=== PATIENT | female | born 1995 | race Caucasian/White ===

== ENCOUNTER 2018-02-24 17:44 | Emergency (ER) | payer OTHER ==
[2018-02-24 17:52] VITALS: BP 115/67
--- NOTE | 2018-02-24 18:21 | ED Physician Documentation ---
PD HPI WOUND RECHECK - Stated complaint Stated Complaint: INCISION CHECK - Chief complaint Chief Complaint: General - Histroy obtained from History obtained from: Patient - History of Present Illness Location: Abdomen, Other (The patient is status post a 3 weeks ago, there is a small area of dehiscence and she has been using butterfly strips. The patient this friend thought that the wound opened up all the way and wanted it rechecked. 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 - Present Medications Home Medications: Ambulatory Orders Medication Instructions Recorded Confirmed Docusate Sodium 250Mg Capsule 250 mg PO DAILY 02/24/18 02/24/18 [Colace 250Mg Capsule] Ferrous Gluconate [Iron] 240 mg PO DAILY PM 02/24/18 02/24/18 Pnv No.95/Ferrous Fum/Folic AC 1 each PO DAILY 02/24/18 02/24/18 [ Caplet] - Allergies Allergies/Adverse Reactions: Allergies Allergy/AdvReac Type Severity Reaction Status Date / Time No Known Drug Allergies Allergy Verified 02/24/18 17:50 - Social History Does the pt smoke?: No Smoking Status: Never smoker Does the pt drink ETOH?: No - Immunizations Immunizations are current?: Yes PD ED PE NORMAL - General General: Alert and oriented X 3, No acute distress - HEENT HEENT: Atraumatic, PERRL, EOMI, Ears normal - Neuro Neuro: Alert and oriented X 3, Normal speech - Psych Psych: Normal mood PD ED PE EXPANDED - Derm SKin visual: 1 - laceration ( scar) 2 - laceration (There is a small area of dehiscence on the right corner of the wound, there is no active drainage and this appears to be healing via secondary intention. There is no other area of wound dehiscence at this time. There is no evidence to suggest underlying seroma, abscess or acute cellulitis.) Results - Vitals Vitals: Vital Signs - 24 hr 02/24/18 17:46 Temperature 36.4 C L Heart Rate 106 H Respiratory 18 Rate Blood Pressure 115/67 O2 Saturation 95 Oxygen O2 Source Room air PD MEDICAL DECISION MAKING - ED course ED course: Advise continuing using the butterfly strips, currently there is no signs of acute infection and the patient appears appropriate for discharge and reevaluation as outpatient. Departure - Departure Disposition: Home, Self Care Clinical Impression: Visit for wound check Condition: Good Comments: Please follow-up with your INTERMEDIATE MANAGER for recheck of your wound Please continue to do the butterfly strips Please return to the emergency department for worsening symptoms or any concerns Discharge Date/Time: 02/24/18 18:25
== END 2018-02-24 18:25 | disposition home or self-care (01) ==
LOC: ED 17:44
DX: O90.0 Disruption of cesarean delivery wound (principal)
CPT/HCPCS: 99281; 99282

== ENCOUNTER 2018-10-18 19:26 | Emergency (ER) | payer OTHER ==
--- NOTE | 2018-10-18 20:29 | ED Physician Documentation ---
PD HPI ABD PAIN - Stated complaint Stated Complaint: N/V CHILLS - Chief complaint Chief Complaint: Abd Pain - History obtained from History obtained from: Patient - History of Present Illness Timing - onset: Enter time (12:00), Today Timing - details: Abrupt onset Pain level now: 6 Quality: Pain Location: All over / everywhere (predominantly RLQ) Radiation: Other (no radiation) Improved by: Position Worsened by: Palpation Associated symptoms: Nausea. No: Fever (uncertain (does not having working thermometer at home)), Vomiting, Diarrhea, Dysuria Similar symptoms before: Has not had sx before Recently seen: Not recently seen - Additional information Additional information: c/o generalized body aches, chills since noon. She then developed nausea, vomiting 4:45 PM today, continues to have n/v. Review of Systems Constitutional: reports: Chills, Myalgias Cardiac: reports: Reviewed and negative Respiratory: reports: Reviewed and negative GI: reports: Abdominal Pain, Nausea. 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 - Present Medications Home Medications: Ambulatory Orders Medication Instructions Recorded Confirmed Docusate Sodium 250Mg Capsule 250 mg PO DAILY 02/24/18 02/24/18 [Colace 250Mg Capsule] Ferrous Gluconate [Iron] 240 mg PO DAILY PM 02/24/18 02/24/18 Pnv No.95/Ferrous Fum/Folic AC 1 each PO DAILY 02/24/18 02/24/18 [ Caplet] Diphenoxylate/Atropine [Lomotil] 1 each PO QID PRN #10 tablet 10/18/18 Ondansetron Odt [Zofran Odt] 4 mg TL Q6H PRN #10 tablet 10/18/18 - Allergies Allergies/Adverse Reactions: Allergies Allergy/AdvReac Type Severity Reaction Status Date / Time No Known Drug Allergies Allergy Verified 02/24/18 17:50 - Social History Does the pt smoke?: No Smoking Status: Never smoker Does the pt drink ETOH?: No Does the pt have substance abuse?: No - Immunizations Immunizations are current?: Yes - POLST Patient has POLST: No PD ED PE NORMAL - Vitals Vital signs reviewed: Yes - General General: Alert and oriented X 3, No acute distress, Well developed/nourished - HEENT HEENT: Other (dry/pasty mucous membranes) - Neck Neck: Supple, no meningeal sign - Cardiac Cardiac: No murmur - Respiratory Respiratory: No respiratory distress, Clear bilaterally - Abdomen Abdomen: Soft, Non distended - Derm Derm: Normal color, Warm and dry PD ED PE EXPANDED - Cardiac Cardiac: Regular Rate, Tachy - Abdomen Abdomen: Tender to palpation, RLQ - Back Back: CVA TTP left (mild) Results - Vitals Vitals: Vital Signs - 24 hr 10/18/18 10/18/18 10/18/18 19:32 20:15 20:53 Temperature 36.3 C L Heart Rate 110 H 81 Respiratory 18 17 17 Rate Blood Pressure 117/61 96/62 O2 Saturation 100 99 10/18/18 10/18/18 10/18/18 21:31 22:35 22:53 Temperature Heart Rate 87 Respiratory 16 16 16 Rate Blood Pressure 92/57 L O2 Saturation 98 Oxygen O2 Source Room air - Labs Labs: Laboratory Tests 10/18/18 10/18/18 10/18/18 20:30 20:30 20:30 WBC 11.7 H RBC 5.01 Hgb 14.5 Hct 44.7 MCV 89.2 MCH 28.9 MCHC 32.4 RDW 13.9 Plt Count 220 MPV 9.9 Neut # (Auto) 10.6 H Lymph # (Auto) 0.6 L [place] # (Auto) 0.5 Eos # (Auto) 0.0 Baso # (Auto) 0.0 Absolute Nucleated RBC 0.00 Nucleated RBC % 0.0 Sodium 138 Potassium 3.6 Chloride 103 Carbon Dioxide 23 Anion Gap 12.0 BUN 17 Creatinine 0.8 Estimated GFR (MDRD) 89 Glucose 120 H Calcium 8.7 Total Bilirubin 2.6 H AST 15 ALT 14 Alkaline Phosphatase 57 Total Protein 6.8 Albumin 4.0 Globulin 2.8 Albumin/Globulin Ratio 1.4 Lipase 30 HCG, Quant < 0.60 Urine Color Urine Clarity Urine pH Ur Specific Taylor Urine Protein Urine Glucose (UA) Urine Ketones Urine Occult Blood Urine Nitrite Urine Bilirubin Urine Urobilinogen Ur Leukocyte Esterase Ur Microscopic Review Urine Culture Comments 10/18/18 22:28 WBC RBC Hgb Hct MCV MCH MCHC RDW Plt Count MPV Neut # (Auto) Lymph # (Auto) [place] # (Auto) Eos # (Auto) Baso # (Auto) Absolute Nucleated RBC Nucleated RBC % Sodium Potassium Chloride Carbon Dioxide Anion Gap BUN Creatinine Estimated GFR (MDRD) Glucose Calcium Total Bilirubin AST ALT Alkaline Phosphatase Total Protein Albumin Globulin Albumin/Globulin Ratio Lipase HCG, Quant Urine Color YELLOW Urine Clarity CLEAR Urine pH 5.5 Ur Specific Taylor <=1.005 Urine Protein NEGATIVE Urine Glucose (UA) NEGATIVE Urine Ketones NEGATIVE Urine Occult Blood NEGATIVE Urine Nitrite NEGATIVE Urine Bilirubin NEGATIVE Urine Urobilinogen 0.2 (NORMAL) Ur Leukocyte Esterase NEGATIVE Ur Microscopic Review NOT INDICATED Urine Culture Comments NOT INDICATED - Rads (name of study) CT A/P Radiology: Prelim report reviewed, See rad report PD MEDICAL DECISION MAKING - ED course Complexity details: reviewed results, re-evaluated patient, considered differential, d/w patient Departure - Departure Disposition: 01 Home, Self Care Clinical Impression: Vomiting, Diarrhea Condition: Good Instructions: ED Diet Vomiting Diarrhea, ED Vomiting Diarrhea Nonspecific Ad Follow-Up: Keon Griffin MD [Primary Care Provider] - Prescriptions: Diphenoxylate/Atropine [Lomotil] 1 each PO QID PRN #10 tablet PRN Reason: Diarrhea Ondansetron Odt [Zofran Odt] 4 mg TL Q6H PRN #10 tablet PRN Reason: Nausea / Vomiting Forms: Activity restrictions Discharge Date/Time: 10/18/18 23:06
[2018-10-18] MEDS ORDERED: ONDANSETRON 4 MG/2 ML VIAL IVP STA (20:45)
[2018-10-18] MEDS ORDERED: SODIUM CHLORIDE 0.9% 1,000 ML IV STA (20:46)
[2018-10-18 20:53] LABS: BASOPHILS % (AUTO) 0.2 %; EOSINOPHILS % (AUTO) 0.3 %; HGB - HEMOGLOBIN 14.5 g/dL (12.0-16.0); LYMPHOCYTES # (AUTO) 0.6 10^3/uL (1.5-3.5); LYMPHOCYTES % (AUTO) 4.7 %; MEAN CORPUSCULAR HEMOGLOBIN 28.9 pg (27.0-31.0); MEAN CORPUSCULAR HGB CONC 32.4 g/dL (32.0-36.0); MEAN CORPUSCULAR VOLUME 89.2 fL (81.0-99.0); MEAN PLATELET VOLUME 9.9 fL (7.9-10.8); MONOCYTES # (AUTO) 0.5 10^3/uL (0.0-1.0); MONOCYTES % (AUTO) 4.2 %; NEUTROPHILS # (AUTO) 10.6 10^3/uL (1.5-6.6); NEUTROPHILS % (AUTO) 90.3 %; PLT - PLATELET COUNT 220 10^3/uL (130-450); RED BLOOD COUNT 5.01 10^6/uL (4.20-5.40); RED CELL DISTRIBUTION WIDTH 13.9 % (12.0-15.0); WHITE BLOOD COUNT 11.7 x10^3/uL (4.8-10.8)
[2018-10-18] MEDS ORDERED: IOVERSOL 320 100 ML VIAL IVP ONE ×2 (20:59→21:42)
[2018-10-18 21:21] LABS: ALBUMIN/GLOBULIN RATIO 1.4 (1.0-2.2); BILIRUBIN,TOTAL 2.6 mg/dL (0.2-1.0); CALCIUM 8.7 mg/dL (8.5-10.3); CREATININE 0.8 mg/dL (0.4-1.0); TOTAL PROTEIN 6.8 g/dL (6.7-8.2)
--- NOTE | 2018-10-18 22:19 | CT Report ---
Reason: RLQ abd. pain Procedure Date: 10/18/2018 Accession Number: [id number] / [id number] Procedure: CT - Abdomen/Pelvis W CPT Code: FULL RESULT: EXAM: CT ABDOMEN AND PELVIS WITH CONTRAST. EXAM DATE: 10/18/2018 09:44 PM. CLINICAL HISTORY: Right lower quadrant abdominal pain. COMPARISONS: None. TECHNIQUE: Routine helical CT imaging was performed through the abdomen and pelvis. IV contrast: 100 mL Optiray 320. Enteric contrast: No. Reconstructions: Coronal and sagittal. In accordance with CT protocol optimization, one or more of the following dose reduction techniques were utilized for this exam: automated exposure control, adjustment of mA and/or KV based on patient size, or use of iterative reconstructive technique. FINDINGS: ABDOMEN: Liver: No significant abnormality. Stomach/Distal Esophagus: No significant abnormality. Gallbladder: No significant abnormality. Bile Ducts: No significant abnormality. Pancreas: No significant abnormality. Spleen: No significant abnormality. Kidneys: No suspicious solid appearing lesion. No hydronephrosis. Adrenals: No significant abnormality. Bowel: No obstruction. Liquid stool noted within the colon, possibly related to a diarrheal event. Appendix: Normal. Lymph Nodes: No pathologically enlarged nodes. Vasculature: Normal caliber aorta. Fluid: No significant free fluid. Abdominal Wall: No significant abnormality. Other: No significant abnormality. PELVIS: Uterus and Ovaries: Physiologic appearance of the uterus and ovaries. There is a 1.8 cm collapsing cyst within the right ovary. Bladder: No significant abnormality. Lymph Nodes: No pathologically enlarged nodes. Fluid: No significant free fluid. Other: None. BONES: No suspicious bony lesions. LOWER CHEST: No significant consolidation or effusion. IMPRESSION: 1. Liquid stool within the colon, suggesting a diarrheal event. 2. No evidence of colitis. No bowel obstruction. Appendix is normal. 3. Physiologic appearance of the uterus and ovaries. RADIA
[2018-10-18 22:36] VITALS: BP 92/57
[2018-10-18 22:37] LABS: BILIRUBIN,URINE NEGATIVE (NEGATIVE); GLUCOSE, URINE (UA) NEGATIVE (NEGATIVE); KETONES,URINE (UA) NEGATIVE (NEGATIVE); LEUKOCYTE ESTERASE, URINE NEGATIVE (NEGATIVE); NITRITE,URINE NEGATIVE (NEGATIVE); OCCULT BLOOD,URINE NEGATIVE (NEGATIVE); PH,URINE 5.5 PH (5.0-7.5); PROTEIN,URINE NEGATIVE (NEGATIVE); UROBILINOGEN,URINE 0.2 (NORMAL) E.U./dL (NORMAL)
[2018-10-18 22:38] LABS: CLARITY,URINE CLEAR (CLEAR)
[2018-10-18] MEDS ORDERED: DIPHENOX/ATROPINE 2.5/0.025 MG TABLET PO STA (22:45)
[2018-10-18] MEDS ORDERED: ONDANSETRON ODT 4 MG Prepack 2 TL PRN (22:45)
== END 2018-10-18 23:06 | disposition home or self-care (01) ==
LOC: ED 19:26
DX: R11.2 Nausea with vomiting, unspecified (principal); R19.7 Diarrhea, unspecified; R10.31 Right lower quadrant pain
CPT/HCPCS: 36415; 74177; 80053; 81003; 83690; 84702; 85025; 96361; 96374; 99284; A9270; Q9967; 81001; 87086

== ENCOUNTER 2018-11-07 08:51 | Emergency (ER) | payer OTHER ==
[2018-11-07] MEDS ORDERED: CHERRY SYRUP 10 ML UDC PO ONE (09:07)
[2018-11-07] MEDS ORDERED: IPRATROPIUM/ALBUTEROL 3 ML NEB INH STA (09:07)
[2018-11-07] MEDS ORDERED: DEXAMETHASONE 10 MG/ML VIAL PO STA (09:07)
--- NOTE | 2018-11-07 09:10 | ED Physician Documentation ---
PD HPI URI - Stated complaint Stated Complaint: COUGH, CHEST PAIN - Chief complaint Chief Complaint: Resp - History obtained from History obtained from: Patient - History of Present Illness Timing - onset: How many days ago (3) Timing duration: Days (3) Timing details: Gradual onset, Still present Associated symptoms: Nasal congestion, Rhinorrhea, Dry cough, Chest pain, Dyspnea Contributing factors: Sick contact Improves by: Rest, Medication Similar symptoms before: Diagnosis (bronchitis) Recently seen: Not recently seen - Additional information Additional information: 23-year-old active [employer] [place] female has developed a cough and congestion shortness of breath and chest pain over the past 3 days. She is not producing any phlegm she feels like she needs to cough something up has not been able to get up. She has had something similar previously with bronchitis and required an inhaler. 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 : None HEENT: None Psych: Anxiety Musculoskeletal: None Derm: None - Past Surgical History 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 - Present Medications Home Medications: Ambulatory Orders Medication Instructions Recorded Confirmed Albuterol Sulf [Ventolin Hfa 1 - 2 puffs INH Q4HR PRN #1 inhaler 11/07/18 Inhaler] Azithromycin [Zithromax] 250 mg PO DAILY #6 tablet 11/07/18 Benzonatate [Tessalon Perle] 100 - 200 mg PO TID PRN #30 capsule 11/07/18 - Allergies Allergies/Adverse Reactions: Allergies Allergy/AdvReac Type Severity Reaction Status Date / Time No Known Drug Allergies Allergy Verified 11/07/18 09:00 - Social History Does the pt smoke?: No Smoking Status: Never smoker Does the pt drink ETOH?: No Does the pt have substance abuse?: No - Immunizations Immunizations are current?: Yes - POLST Patient has POLST: No PD ED PE NORMAL - Vitals Vital signs reviewed: Yes (normal ) - General General: Alert and oriented X 3, No acute distress, Well developed/nourished - HEENT HEENT: Atraumatic, PERRL, EOMI, Ears normal, Other (There is mid facial swelling and puffy eyes. ) - Neck Neck: Supple, no meningeal sign, No bony TTP - Cardiac Cardiac: RRR, No murmur - Respiratory Respiratory: No respiratory distress, Other (diminished breath sounds. ) - Abdomen Abdomen: Soft, Non tender - Back Back: No CVA TTP, No spinal TTP - Derm Derm: Normal color, Warm and dry, No rash - Extremities Extremities: No deformity, No edema - Neuro Neuro: Alert and oriented X 3, jet inspector 2-12 intact, No motor deficit, No sensory deficit, Normal speech Eye Opening: Spontaneous Motor: Obeys Commands Verbal: Oriented GCS Score: 15 - Psych Psych: Normal mood, Normal affect Results - Vitals Vitals: Vital Signs - 24 hr 11/07/18 11/07/18 08:59 09:16 Temperature 36.5 C Heart Rate 75 76 Respiratory 20 16 Rate Blood Pressure 110/62 O2 Saturation 99 Oxygen O2 Source Room air PD MEDICAL DECISION MAKING - ED course Complexity details: reviewed results, re-evaluated patient, considered differential, d/w patient ED course: 23 y/o female with a URI with chest tightness is given decadron and a duoneb. She has improvement with this. Departure - Departure Disposition: 01 Home, Self Care Clinical Impression: Asthmatic bronchitis Qualifiers: Asthma severity: mild Asthma persistence: intermittent Asthma complication type: with acute exacerbation Qualified Code(s): J45.21 - Mild intermittent asthma with (acute) exacerbation Condition: Stable Instructions: ED Bronchitis Asthmatic Follow-Up: Keon Griffin MD [Primary Care Provider] - Prescriptions: Albuterol Sulf [Ventolin Hfa Inhaler] 1 - 2 puffs INH Q4HR PRN #1 inhaler PRN Reason: Shortness Of Air/Wheezing Azithromycin [Zithromax] 250 mg PO DAILY #6 tablet Benzonatate [Tessalon Perle] 100 - 200 mg PO TID PRN #30 capsule PRN Reason: Cough Forms: Activity restrictions
[2018-11-07 10:28] VITALS: BP 116/74
== END 2018-11-07 10:28 | disposition home or self-care (01) ==
LOC: ED 08:51
DX: J45.21 Mild intermittent asthma with (acute) exacerbation (principal)
CPT/HCPCS: 94640; 99283; 99284; A9270

== ENCOUNTER 2019-01-05 10:30 | Emergency (ER) | payer OTHER ==
--- NOTE | 2019-01-05 10:55 | ED Physician Documentation ---
PD HPI FEMALE - Stated complaint Stated Complaint: FEMALE - Chief complaint Chief Complaint: Abd Pain - History obtained from History obtained from: Patient - History of Present Illness Timing - onset: How many days ago (20) Timing - duration: Days (She has had vaginal bleeding for about 3 weeks after a medical elective termination of . She is 6 weeks by ultrasound and had misoprostol through [facility]. She had expected cramping and vaginal bleeding over several days to week which then persisted longer than expected. The vaginal bleeding is continued and has actually increased in the last 2 or 3 days to being fully saturated pad or tampon every 2-3 hours. This morning she awoke and had vaginal bleeding overflow her pad which was a maxi pad and was running down her leg. She was feeling generally weak and lightheaded. She is having intermittent pelvic cramping. She was to follow-up with [facility] but her daughter became sick and she was unable to make the scheduled appointment and then had not been able to reschedule as yet.) Timing - details: Abrupt onset, Still present (worse the past 2-3 days), Waxing and waning Associated symptoms: Pelvic pain (intermittent), Vaginal bleeding. 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: No Does the pt have substance abuse?: No - Immunizations Immunizations are current?: Yes - POLST Patient has POLST: No PD ED PE NORMAL - Vitals Vital signs reviewed: Yes (tachycardic but good BP) - General General: Alert and oriented X 3, No acute distress, Well developed/nourished - Neck Neck: Supple, no meningeal sign, No adenopathy - Cardiac Cardiac: RRR, No murmur - Respiratory Respiratory: Clear bilaterally - Abdomen Abdomen: Normal bowel sounds, Soft, Non tender, Non distended, No organomegaly - Female Female : Deferred - Back Back: No CVA TTP - Derm Derm: Normal color, Warm and dry - Extremities Extremities: Normal ROM s pain - Neuro Neuro: Alert and oriented X 3, No motor deficit, Normal speech Results - Vitals Vitals: Vital Signs - 24 hr 01/05/19 01/05/19 01/05/19 10:37 10:59 11:11 Temperature 36.7 C Heart Rate 118 H 108 H 100 Respiratory 20 18 Rate Blood Pressure 108/67 105/64 100/67 O2 Saturation 98 98 01/05/19 01/05/19 01/05/19 11:56 13:21 14:29 Temperature Heart Rate 112 H 85 85 Respiratory 16 16 16 Rate Blood Pressure 108/69 104/62 106/57 L O2 Saturation 98 99 99 01/05/19 15:00 Temperature Heart Rate 95 Respiratory 18 Rate Blood Pressure 102/59 L O2 Saturation 99 Oxygen O2 Source Room air - Labs Labs: Laboratory Tests 01/05/19 01/05/19 01/05/19 10:50 10:50 10:50 WBC 5.2 RBC 4.49 Hgb 13.4 Hct 40.4 MCV 90.0 MCH 29.8 MCHC 33.2 RDW 13.6 Plt Count 241 MPV 10.0 Neut # (Auto) 3.2 Lymph # (Auto) 1.0 L [place] # (Auto) 0.7 Eos # (Auto) 0.2 Baso # (Auto) 0.1 Absolute Nucleated RBC 0.00 Nucleated RBC % 0.0 Sodium 137 Potassium 3.9 Chloride 103 Carbon Dioxide 26 Anion Gap 8.0 BUN 10 Creatinine 0.6 Estimated GFR (MDRD) 124 Glucose 90 Calcium 8.7 Total Bilirubin 1.8 H AST 13 ALT 11 Alkaline Phosphatase 48 Total Protein 7.1 Albumin 4.2 Globulin 2.9 Albumin/Globulin Ratio 1.4 Lipase 34 HCG, Quant 1599.00 Blood Type Antibody Screen 01/05/19 10:50 WBC RBC Hgb Hct MCV MCH MCHC RDW Plt Count MPV Neut # (Auto) Lymph # (Auto) [place] # (Auto) Eos # (Auto) Baso # (Auto) Absolute Nucleated RBC Nucleated RBC % Sodium Potassium Chloride Carbon Dioxide Anion Gap BUN Creatinine Estimated GFR (MDRD) Glucose Calcium Total Bilirubin AST ALT Alkaline Phosphatase Total Protein Albumin Globulin Albumin/Globulin Ratio Lipase HCG, Quant Blood Type A POSITIVE Antibody Screen NEGATIVE - Rads (name of study) pelvic U/S Radiology: Prelim report reviewed (Thickened endometrial strip with vascularity, cannot exclude retained POC. ), See rad report PD MEDICAL DECISION MAKING - ED course Complexity details: reviewed results, re-evaluated patient, considered differential (Her history and symptoms are concerning for retained products of conception or potentially endometritis that she does not really have any fever or discharge. We will get a quantitative level as well as blood count and ultrasound. Can consult gynecology.), d/w oracle ebs consultant (Kiana, BARTENDER HELPER) ED course: The patient had eaten some prior to ultrasound when a friend came and visited her and brought some food. This was unbeknownst to nursing nor myself. Dr. Bruno talked with the patient was going to do a D&C but because of the food intake opted to delay it till tomorrow morning and the patient was agreeable with this. The patient will return tomorrow morning for D&C and will remain n.p.o. after midnight. Departure - Departure Disposition: 01 Home, Self Care Clinical Impression: Vaginal bleeding, Incomplete miscarriage Condition: Stable Record reviewed to determine appropriate education?: Yes Instructions: ED Miscarriage Incom Follow-Up: Vonnie Bruno MD [Provider Admit Priv/Credential] - Comments: Drink lots of fluids. Tylenol if needed for pains. Return tomorrow morning for surgery as planned with Dr. Bruno. Nothing to eat or drink after midnight. Discharge Date/Time: 01/05/19 15:17
[2019-01-05] MEDS ORDERED: SODIUM CHLORIDE 0.9% 1,000 ML IV ONE ×2 (11:19→13:54)
[2019-01-05 11:31] LABS: BASOPHILS # (AUTO) 0.1 10^3/uL (0.0-0.1); EOSINOPHILS # (AUTO) 0.2 10^3/uL (0.0-0.7); EOSINOPHILS % (AUTO) 3.3 %; HGB - HEMOGLOBIN 13.4 g/dL (12.0-16.0); LYMPHOCYTES % (AUTO) 19.6 %; MEAN CORPUSCULAR HEMOGLOBIN 29.8 pg (27.0-31.0); MEAN CORPUSCULAR HGB CONC 33.2 g/dL (32.0-36.0); MONOCYTES # (AUTO) 0.7 10^3/uL (0.0-1.0); MONOCYTES % (AUTO) 13.8 %; NEUTROPHILS # (AUTO) 3.2 10^3/uL (1.5-6.6); NEUTROPHILS % (AUTO) 61.9 %; PLT - PLATELET COUNT 241 10^3/uL (130-450); RED BLOOD COUNT 4.49 10^6/uL (4.20-5.40); RED CELL DISTRIBUTION WIDTH 13.6 % (12.0-15.0); WHITE BLOOD COUNT 5.2 x10^3/uL (4.8-10.8)
[2019-01-05 11:42] LABS: ALBUMIN 4.2 g/dL (3.2-5.5); ALBUMIN/GLOBULIN RATIO 1.4 (1.0-2.2); BILIRUBIN,TOTAL 1.8 mg/dL (0.2-1.0); CALCIUM 8.7 mg/dL (8.5-10.3); CREATININE 0.6 mg/dL (0.4-1.0); TOTAL PROTEIN 7.1 g/dL (6.7-8.2)
--- NOTE | 2019-01-05 13:36 | Ultrasound Report ---
Reason: vag bleeding; 20 days post medical miscarriage Procedure Date: 01/05/2019 Accession Number: [id number] / [id number] Procedure: US - Pelvic w/Transvag+Doppler Ltd CPT Code: Final Report FULL RESULT: EXAM: PELVIC ULTRASOUND WITH DOPPLERS CLINICAL HISTORY: Vag bleeding; 20 days post medical miscarriage. COMPARISON: None. TECHNIQUE: Realtime transabdominal imaging performed to identify the uterus and adnexa and as an overview of other pelvic structures, followed by transvaginal imaging for better assessment of the endometrium and adnexa, with static image documentation. Color flow imaging and Doppler spectral analysis was performed to evaluate blood flow to the ovaries given pelvic pain FINDINGS: Uterus: 8.2 x 4.6 x 6.1 cm, volume 120 cc. Anteverted position. Normal overall size and echotexture. Masses: None. Endometrium: 14 mm. Heterogeneous echogenicity of the endometrium with areas of increased Doppler vascularity seen. Cervix: Unremarkable. Right Ovary: 3.8 x 2 x 4.1 cm, volume 16.2 cc. Multiple follicular cysts are seen. Arterial and venous blood flow are present. PSV 7.6 cm/sec. RI 0.8. Adnexa are unremarkable. Left Ovary: 2.9 x 2.6 x 2.8 cm, volume 10.7 cc. Multiple follicular cysts noted Arterial and venous blood flow are present. PSV 3.8 cm/sec. RI 0.5. Adnexa are unremarkable. Free Fluid: Trace free fluid seen in the bilateral adnexa. Other: None. IMPRESSION: 1. Prominent endometrium with diffusely heterogeneous echogenicity, containing hyperechoic lesions with increased vascularity. Retained products of conception cannot be excluded given the imaging appearance. 2. Follicular cysts in the ovaries. No evidence for ovarian torsion. 3. Trace free fluid in the bilateral adnexa, possibly physiologic. RADIA
[2019-01-05 15:04] VITALS: BP 102/59
--- NOTE | 2019-01-05 18:57 | CONSULTATION NOTE ---
DATE OF SERVICE: 01/05/2019 Physician: Vonnie Bruno MD CONSULTATION AND HISTORY AND PHYSICAL REPORT REASON FOR CONSULTATION: Retained products of conception. HISTORY OF PRESENT ILLNESS: The patient is a 23-year-old G2, P1-0-0-1, who discovered that she was s ix weeks despite using condoms for contraception. She elected to have a medical termination at [facility]. She took the medication on 12/15/2018 and had bleeding that she thought was consistent with a miscarriage. She did not go to her followup visit. She continued bleeding, waxing and waning red blood without a decrease in quantity over time. Finally, this morning, she woke with blood going down to her inner thighs, which was a sign to her that she needed to be evaluated. She has not had any fevers. She is feeling well overall. No abdominal pain. PAST MEDICAL HISTORY: Polycystic ovary syndrome and anxiety. PAST SURGICAL HISTORY: section for nonreassuring surveillance and wisdom tooth extrac tion. ALLERGIES: NO KNOWN DRUG ALLERGIES. MEDICATIONS: Trazodone p.r.n. insomnia. SOCIAL HISTORY: The patient is a current smoker, 1-3 cigarettes per day. No alcohol or drug use. S he lives with roommates and is a single parent to her [id number]. OBSTETRICAL HISTORY: Prior was uncomplicated except for the at the end. MANAGER DIVISION HISTORY: No history of sexually transmitted infections. No IUD use currently. FAMILY HISTORY: No anesthesia complications. PHYSICAL EXAMINATION: VITAL SIGNS: She is currently afebrile with normal vital signs. On admission, she was slightly tach ycardic. GENERAL: She is alert and smiling, in no apparent distress. GASTROINTESTINAL: Abdomen is soft, nontender, nondistended. CARDIOVASCULAR: Regular rate and rhythm. No clicks, rubs, gallops or murmurs. RESPIRATORY: LUNGS: Clear to auscultation bilaterally. LABORATORY DATA: Hematocrit 40.4. White count 5.2. CMP is normal; hCG is 1600 and blood type is A-p ositive. DIAGNOSTIC DATA: Ultrasound contained heterogeneous debris with color flow consistent with retained products of conception. There were no adnexal issues. IMPRESSION AND PLAN: A 23-year-old G2, P1-0-0-1, with a failed medical termination performed at 6 we eks gestation, 3 weeks ago. The patient is not experiencing any currently heavy bleeding, current pa in, or symptoms of infection like fever or an increased white count. Her cervix was closed on ound. Unfortunately, she ate without permission at 1300 hours. With her being so stable, rather than bringing her tonight, we will have her come back in the morning for an 0800 hours start. She was cou nseled that her options for management include expectant management, medical management, which still may be effective, or dilation and curettage. The patient does not want to deal with this on an ongoi ng basis and so she elects for surgical treatment with dilation and curettage. The procedure and rec overy were explained. Risks including but not limited to bleeding, infection, trauma to local organs , anesthesia complications and retained products of conception were reviewed. All questions were ans wered and the consent form was signed. We reviewed that she would need ibuprofen or naproxen for use post surgery but that no narcotics would be needed. She will need a work note tomorrow so that she can return back to work 48 hours later. TD: 01/05/2019 15:16
--- NOTE | 2019-01-06 08:25 | ANESTHESIA ---
Pre-Anesthesia VS, & Labs - Diagnosis Retained POC - Procedure Suction D and C Vital Signs: Temp Pulse Resp BP Pulse Ox 36.7 C 95 18 102/59 L 99 01/05/19 10:37 01/05/19 15:00 01/05/19 15:00 01/05/19 15:00 01/05/19 15:00 Height 5 ft 7 in Weight (kg) 74.843 kg Body Mass Index 25.8 - Is Patient ?: Yes - Lab Results Current Lab Results: Laboratory Tests 01/05/19 10:50: Blood Type A POSITIVE, Antibody Screen NEGATIVE 01/05/19 10:50: HCG, Quant 1599.00 01/05/19 10:50: Sodium 137, Potassium 3.9, Chloride 103, Carbon Dioxide 26, Anion Gap 8.0, BUN 10, Creatinine 0.6, Estimated GFR (MDRD) 124, Glucose 90, Calcium 8.7, Total Bilirubin 1.8 H, AST 13, ALT 11, Alkaline Phosphatase 48, Total Protein 7.1, Albumin 4.2, Globulin 2.9, Albumin/Globulin Ratio 1.4, Lipase 34 01/05/19 10:50: WBC 5.2, RBC 4.49, Hgb 13.4, Hct 40.4, MCV 90.0, MCH 29.8, MCHC 33.2, RDW 13.6, Plt Count 241, MPV 10.0, Neut # (Auto) 3.2, Lymph # (Auto) 1.0 L , Braxton # (Auto) 0.7, Eos # (Auto) 0.2, Baso # (Auto) 0.1, Absolute Nucleated RBC 0.00, Nucleated RBC % 0.0 Lab results reviewed: Yes Fish Bones: 01/05/19 10:50 01/05/19 10:50 Home Medications and Allergies Home Medications: Ambulatory Orders No Known Home Medications 01/05/19 No Known Home Medications 01/05/19 Allergies/Adverse Reactions: Allergies Allergy/AdvReac Type Severity Reaction Status Date / Time No Known Drug Allergies Allergy Verified 01/05/19 10:43 Anes History & Medical History - Anesthetic History Anesthesia Complications: reports: No previous complications Family history of Anesthesia Complications: Denies Family history of Malignant Hyperthermia: Denies - Medical History Cardiovascular: reports: None Pulmonary: reports: None Gastrointestinal: reports: None Urinary: reports: None Neuro: reports: None Musculoskeletal: reports: None Endocrine/Autoimmune: reports: None Blood Disorders: reports: None Skin: reports: None Smoking Status: Current some day smoker Psychosocial: reports: No issues indicated Other Past Medical History: PCOS - Surgical History Gynecologic: section Exam General: Alert, Oriented x3 Dental: WNL Mouth Opening: Greater than 4 Fingerbreadths Neck Mobility: Normal Mallampati classification: I Thyromental Distance: greater than 6 cm Respiratory: Lungs clear Cardiovascular: Regular rate Neurological: Normal speech Mental/Cognitive Status: Alert/Oriented X3 Cognitive Status: Within normal limits Plan Anesthesia Type: General Consent for Procedure(s) Verified and Reviewed: Yes Code Status: Attempt Resuscitation ASA classification: 2-Mild systemic disease Is this case an emergency?: Yes
== END 2019-01-05 15:17 | disposition home or self-care (01) ==
LOC: ED 10:30
DX: O07.1 Delayed or excessive hemorrhage following failed attempted termination of pregnancy (principal); F17.210 Nicotine dependence, cigarettes, uncomplicated
CPT/HCPCS: 36415; 76830; 76856; 80053; 83690; 84702; 85025; 86850; 86900; 86901; 93976; 96360; 96361; 99284

== ENCOUNTER 2019-01-06 08:00 | Day surgery (SDC) | payer OTHER ==
[2019-01-06] MEDS ORDERED: DEXAMETHASONE 4 MG/ML VIAL IVP ONE (08:01)
[2019-01-06] MEDS ORDERED: MIDAZOLAM 2 MG/2 ML VIAL IVP ONE (08:01)
[2019-01-06] MEDS ORDERED: PROPOFOL 200 MG/20 ML VIAL IVP ONE (08:01)
[2019-01-06] MEDS ORDERED: fentaNYL 100 MCG/2 ML VIAL IVP ONE (08:01)
[2019-01-06] MEDS ORDERED: NEOSTIGMINE 1 MG/1 ML 10 ML MDV IVP ONE (08:01)
[2019-01-06] MEDS ORDERED: GABAPENTIN 400 MG CAPSULE ONE (08:33)
[2019-01-06] MEDS ORDERED: CELECOXIB 100 MG CAPSULE PO ONE (08:34)
[2019-01-06] MEDS ORDERED: LACTATED RINGERS 1,000 ML IV ONE (08:43)
[2019-01-06] MEDS ORDERED: LIDOCAINE MPF 2%-EPI 1:200000 20 ML VIAL ONE (08:53)
[2019-01-06] MEDS ORDERED: LIDOCAINE 2%-EPI 1:100000 20 ML MDV SUBQ ONE ×2 (09:15)
[2019-01-06] MEDS ORDERED: SILVER NITRATE APPLICATOR TOP ONE (09:19)
[2019-01-06] MEDS ORDERED: HYDROmorphone 0.5 MG/0.5 ML SYRINGE IVP PRN (09:47)
[2019-01-06] MEDS ORDERED: ONDANSETRON 4 MG/2 ML VIAL IVP PRN (09:47)
[2019-01-06] MEDS ORDERED: oxyCODONE 5 MG TABLET PO PRN (09:47)
--- NOTE | 2019-01-06 09:49 | OPERATIVE REPORT ---
Operative Report - General Procedure Date: 01/06/19 [facility] Procedure: D&C Pre-Op Diagnosis: Retained products of conception Procedure Performed: Suction D&C Post Op Diagnosis: Retained products of conception - Procedure Note Primary Surgeon: Kiana Secondary Surgeon: marcelina Anesthesia Technique: General LMA Pathology: Products of conception to pathology IV Fluids (mL): 600 Estimated Blood Loss (mL): 15 Findings: Normal genitalia Complications: None
[2019-01-06 10:20] VITALS: BP 106/57
--- NOTE | 2019-01-06 17:55 | PROCEDURE REPORT ---
DATE OF SERVICE: 01/06/2019 Physician: Vonnie Bruno MD PREOPERATIVE DIAGNOSIS: Retained products of conception. POSTOPERATIVE DIAGNOSIS: Retained products of conception. PROCEDURE PERFORMED: Suction dilation and curettage. SURGEON: Vonnie Bruno MD. NUCLEAR PLANT TECHNICAL ADVISOR: None. ANESTHESIA: General via LMA. ESTIMATED BLOOD LOSS: 15 mL IV FLUIDS: 600 mL COUNTS: Correct x2. COMPLICATIONS: None apparent. DISPOSITION: Stable to recovery room. PROPHYLAXIS: SCDs to bilateral lower extremities. Doxycycline 100 mg IV. SPECIMENS: Products of conception to Pathology. FINDINGS: Normal external genitalia. Good uterine cry at the end of the procedure. COUNSELING: The patient is a 23-year-old G2, P1-0-0-1, who underwent medical termination of pregnanc y on 12/15/2018. She had ongoing bleeding and came to the ER where she was found to have retained pr oducts of conception by ultrasound. She was offered medical or surgical management. Expectant manag ement was not recommended as it had already been 3 weeks without passage of products. She chose surg ical management. DESCRIPTION OF PROCEDURE: The patient was brought to the operating room, where she was induced with general anesthesia. She was placed in low lithotomy in [facility]. Bimanual examination reve aled an axial uterus with a soft cervix and no adnexal masses. She was prepped and draped in the usu al sterile fashion. A speculum was placed in the vagina and the cervix was visualized. A single-too thed tenaculum was applied to the cervix and 10 mL of a paracervical block of 2% lidocaine with epine phrine was injected. The cervix was already dilated to 8 mm. An 8 mm suction curette was inserted i nto the uterine cavity, after ensuring that the suction pressure maxed out at 40. Gentle curettage w as performed with products of conception removed. A very gentle pass with a metal curette was perfor med to verify that there was good cry throughout, and there was. The tenaculum was removed. There w as a little bit of bleeding that resolved with pressure. All instruments were removed from the vagin a. The patient was washed and returned to the supine position prior to waking. TD: 01/06/2019 09:57
== END 2019-01-06 10:39 | disposition home or self-care (01) ==
LOC: SDS 08:00
PROVIDERS: ATTEND Obstetrics & Gynecology
PROC: 10D17Z9 Manual Extraction of Products of Conception, Retained, Via Natural or Artificial Opening (ICD-10-PCS; principal; 2019-01-06 08:00)
DX: O07.4 Failed attempted termination of pregnancy without complication (principal); F17.210 Nicotine dependence, cigarettes, uncomplicated
CPT/HCPCS: 59812; A9270; J7120

== ENCOUNTER 2019-01-23 07:21 | Outpatient (CLI) | payer OTHER ==
--- NOTE | 2019-01-23 14:43 | MRI Report ---
Reason: LOW BACK PAIN Procedure Date: 01/23/2019 Accession Number: [id number] / [id number] Procedure: MRI - Lumbar Spine W/O CPT Code: Final Report FULL RESULT: EXAM: MRI LUMBAR SPINE WITHOUT CONTRAST EXAM DATE: 01/23/2019 07:39 AM. CLINICAL HISTORY: Low back pain. COMPARISON: None. TECHNIQUE: Multiplanar, multisequence T1-weighted and fluid-sensitive sequences of the lumbar spine from T12 to S1 without contrast. Other: None. FINDINGS: Spinal Canal: The conus terminates at L1. The conus medullaris and cauda equina are unremarkable. Alignment: No scoliosis or spondylolisthesis. Bone Marrow: Five [id number] lumbar vertebral bodies are assumed. No gross fractures or bone lesions. No bone marrow replacement. Disk Levels/Facets: T12-L1: Unremarkable. L1-L2: Minimal disk bulge. No stenosis. L2-L3: Minimal disk bulge. No stenosis. L3-L4: Annular disk bulge with small broad-based central disk protrusion and mild degenerative facet arthropathy. Mild effacement of the thecal sac. No significant stenosis. L4-L5: Disk dehydration. Annular disk bulge. Mild facet arthropathy. Mild inferior foraminal narrowing without significant stenosis. L5-S1: Minimal disk bulge and mild facet arthropathy. No stenosis. Musculature: Normal. No edema or fatty atrophy. Other: The partially visualized retroperitoneum is unremarkable. IMPRESSION: 1. Mild lumbar degenerative disk and facet arthropathy without significant associated central canal or foraminal stenosis. Comment: The following findings are so common in adults without low back pain that while we report their presence, they must be interpreted with caution and in the context of the clinical situation. (Reference Karok et al, Spine 2001) Prevalence of findings in patients without low back pain: Disk degeneration (any evidence): 92% Disk desiccation/T2 signal loss: 83% Disk height loss: 56% Disk bulge: 64% Disk protrusion: 32% Annular tear/high intensity zone: 38% RADIA
== END 2019-01-23 07:22 | disposition home or self-care (01) ==
LOC: DI 07:21
DX: M51.36 Other intervertebral disc degeneration, lumbar region (principal)
CPT/HCPCS: 72148

== ENCOUNTER 2019-03-21 12:54 | Emergency (ER) | payer OTHER ==
[2019-03-21 12:59] VITALS: BP 112/69
--- NOTE | 2019-03-21 13:36 | ED Physician Documentation ---
PD HPI BACK PAIN - Stated complaint Stated Complaint: BACK PX - Chief complaint Chief Complaint: Back Pain - History obtained from History obtained from: Patient - History of Present Illness Timing - onset: Yesterday (23-year-old woman who is had 5 years of atraumatic back pain, it is all day every day, her usual pain level is a 3. She has not been on any meds for the last couple of years. 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 She said this is probably related to some cleaning she did yesterday. In the past she is been on Lyrica with relief, is not on any meds now. She denies weakness, numbness, tingling, saddle anesthesia, or fevers. 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 - Present Medications Home Medications: Ambulatory Orders Medication Instructions Recorded Confirmed Pregabalin [Lyrica] 150 mg PO BID #60 capsule 03/21/19 - Allergies Allergies/Adverse Reactions: Allergies Allergy/AdvReac Type Severity Reaction Status Date / Time No Known Drug Allergies Allergy Verified 03/21/19 12:59 - Social History Does the pt smoke?: No Smoking Status: Never smoker Does the pt drink ETOH?: No Does the pt have substance abuse?: No - Immunizations Immunizations are current?: Yes - POLST Patient has POLST: No PD ED PE NORMAL - Vitals Vital signs reviewed: Yes - General General: Alert and oriented X 3, No acute distress - Abdomen Abdomen: Non tender - Back Back: Other (Mild tenderness of the lower lumbar spine and left SI joint. Full range of motion. No deformities. The patient has equal and normal Achilles and patellar reflexes bilaterally. Normal sensation in all areas of the legs. Patient denies saddle anesthesia. Normal strength in flexion-extension at the ankles, knees, and flexion of the hips.) - Neuro Neuro: Alert and oriented X 3, Normal speech Eye Opening: Spontaneous Motor: Obeys Commands Verbal: Oriented GCS Score: 15 Results - Vitals Vitals: Vital Signs - 24 hr 03/21/19 12:57 Temperature 36.6 C Heart Rate 89 Respiratory 18 Rate Blood Pressure 112/69 O2 Saturation 98 Oxygen O2 Source Room air PD MEDICAL DECISION MAKING - ED course ED course: She presents with exacerbation of chronic back pain, she does not really want to be here. She has an appointment for pain management next month. We talked about going back on Lyrica in the interim which she was willing to try. Also recommended testing for ankylosing spondylitis as it sounds like that is never been addressed. Departure - Departure Disposition: 01 Home, Self Care Clinical Impression: Back pain Condition: Good Record reviewed to determine appropriate education?: Yes Instructions: ED Chronic Pain Management, ED Neck Back Pain General Prescriptions: Pregabalin [Lyrica] 150 mg PO BID #60 capsule Comments: [place] consider testing for ankylosing spondylitis which somewhat fits your symptoms and it sounds like that is never really been addressed. Return for new or worsening symptoms. Forms: Activity restrictions
== END 2019-03-21 13:55 | disposition home or self-care (01) ==
LOC: ED 12:54
DX: M54.5 Low back pain (principal); G89.29 Other chronic pain
CPT/HCPCS: 99282; 99283

== ENCOUNTER 2020-04-16 07:41 | Outpatient (CLI) | payer OTHER ==
--- NOTE | 2020-04-16 10:25 | MRI Report ---
PROCEDURE: Knee RT W/O INDICATIONS: RT KNEE PAIN TECHNIQUE: Noncontrast sagittal PD fast spin echo and T2 fast spin echo with fat saturation, sagittal 3-D gradie nt sequence with fat saturation; coronal T1 spin echo and PD fast spin echo with fat saturation, and axial PD fast spin echo with fat saturation through the knee. COMPARISON: None. FINDINGS: Image quality: Excellent. Menisci: The medial and lateral menisci are intact. There is no meniscal extrusion. Cruciate ligaments: The anterior and posterior cruciate ligaments appear intact. Medial structures: The medial collateral ligament appears intact. The semimembranosus tendon insert ions appear intact. Visualized portions of the pes anserinus tendons appear normal. Lateral structures: The lateral collateral ligament, long and short heads of the biceps femoris tend on appear intact. The popliteus tendon appears intact. Iliotibial band appears normal. Anterior structures: There is mild proximal patellar tendinosis. The distal quadriceps tendon is int act. A mildly shallow trochlear groove is seen without patellar subluxation. The tibial tubercle troc hlear groove distance is 1.4 cm. There is moderate edema in the superolateral aspect of Hoffa's fat p ad, which can be seen in the setting of lateral femoral condyle-patellar tendon friction syndrome. Bones and cartilage: No acute trabecular bone injury. A circumscribed T2 hyperintense lesion with non aggressive features is seen at the posterolateral aspect of the distal femoral metaphysis, most likel y representing a chronic tug lesion. The cartilage of the medial and lateral femorotibial compartment s, as well as the patellofemoral compartment, appears normal in thickness. Joint space and soft tissues: There is a small joint effusion. There is a trace medial popliteal cy st. IMPRESSION: 1. No acute trabecular bone injury. The cruciate and collateral ligaments are intact. There is no me niscal tear. 2. 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 The tibial tubercle-tr ochlear groove distance is within normal limits. There is moderate edema in the superolateral aspect of Hoffa's fat pad that can be seen in the setting of lateral femoral condyle-patellar tendon frictio n syndrome. 3. Mild proximal patellar tendinosis. 4. 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 5. Small joint effusion. Reviewed by: Nacho Downing MD on 04/16/2020 10:24 AM PST Approved by: Nacho Downing MD on 04/16/2020 10:24 AM PST Station ID: [id number]
== END 2020-04-16 07:42 | disposition home or self-care (01) ==
LOC: DI 07:41
PROVIDERS: ATTEND Student in an Organized Health Care Education/Training Program
DX: M25.561 Pain in right knee (principal); M25.461 Effusion, right knee; M76.51 Patellar tendinitis, right knee